=== PATIENT | male | born 1950 | race Caucasian/White ===

== ENCOUNTER 2020-02-16 03:10 | Outpatient (CLI) | payer OTHER, SELFPAY ==
[2020-02-19 15:41] LABS: Patient Race White; SARS-CoV-2 RNA Undetected (Undetected); SARS-CoV-2 Specimen Source Nasal
== END 2020-02-16 03:30 ==
PROVIDERS: PCP Family Medicine Adult Medicine; Visit Provider Family Medicine
DX: Z20.828 Contact with and (suspected) exposure to other viral communicable diseases (principal)
CPT/HCPCS: U0003

== ENCOUNTER 2024-12-21 15:14 | Outpatient (CLI) | payer MEDICARE, SELFPAY ==
[2024-12-21 09:28] LABS: Hemoglobin A1C 5.5 % (<5.7)
[2024-12-21 09:50] LABS: Anion Gap 7.2 mmol/L (3-11); BUN 17 mg/dL (7-18); CO2 28.8 mmol/L (21.0-32.0); Calcium 9.0 mg/dL (8.5-10.1); Chloride 99 mmol/L (98-107); Cholesterol 164 mg/dL (<200); Estimated GFR 91.72 (mL/min/1.73m2); Glucose 98 mg/dL (74-106); HDL Cholesterol 63 mg/dL (>or=40); Potassium 4.1 mmol/L (3.5-5.1); Sodium 135 mmol/L (136-145); Triglyceride <25 mg/dL (<150)
[2024-12-21 10:20] LABS: LDL CHOLESTEROL 95 mg/dL (<100)
[2024-12-21 17:57] LABS: PSA, Screening 1.0 ng/mL (<=6.5)
== END 2024-12-21 15:15 | disposition home or self-care (01) ==
LOC: LBO 15:14
PROVIDERS: PCP Nurse Practitioner Family; Visit Provider Nurse Practitioner Family
DX: Z13.6 Encounter for screening for cardiovascular disorders (principal); Z13.1 Encounter for screening for diabetes mellitus; Z12.5 Encounter for screening for malignant neoplasm of prostate
CPT/HCPCS: 36415; 80048; 80061; 83721; 84153; 83036

== ENCOUNTER → 2025-02-14 11:01 | Outpatient (CLI) | payer MEDICARE, SELFPAY ==
--- NOTE | 2025-02-14 11:14 | DI.RAD_ITS ---
Exam(s) XR CHEST 2V PA LATERAL EXAM: XR CHEST 2V PA LATERAL CLINICAL HISTORY: cough, R05.9 TECHNIQUE: 2D digital imaging was performed. Two views. COMPARISON: No exams were available for comparison FINDINGS: HEART: Normal size. Aorta: Not dilated. PULMONARY VASCULATURE: Normal. MEDIASTINUM: Unremarkable. LUNGS: Clear hyperinflated. There is blunting at the right costophrenic angle could represent chronic scarring versus tiny effusion. The lungs are otherwise clear. PLEURAL SPACE: No pneumothorax. BONE:Unremarkable for age. SOFT TISSUES: Unremarkable. IMPRESSION: Question of tiny right pleural effusion versus pleural scarring. No pneumonia is visible. DATA REPOSITORY: RADIATION DOSE DELIVERED:
== END ==
LOC: DI 11:01
PROVIDERS: PCP Nurse Practitioner Family; Visit Provider Nurse Practitioner Family
DX: R05.9 Cough, unspecified (principal)
CPT/HCPCS: 71046